=== PATIENT | female | born 1930 | race Caucasian/White ===

== ENCOUNTER 2017-07-07 22:48 | Emergency (ER) | payer OTHER, MEDICARE ==
[2017-07-07 23:34] VITALS: BP 148/104
--- NOTE | 2017-07-07 23:46 | ER Document Report ---
ED Blood Pressure Problem - General Chief Complaint: High Blood Pressure Stated Complaint: BLOOD PRESSURE PROBLEMS Time Seen by Provider: 07/07/17 23:26 Mode of Arrival: Ambulatory Information source: Patient Notes: 86-year-old female presented to ED for elevated blood pressure. She denies any chest pain shortness of breath or any other cardiac symptoms. She states she has had a headache off and on but none today. She is also had some pain in her neck but none today. She states she went to her primary doctor today and he changed her blood pressure medicine. She just became concerned because her blood pressure was in the 190s-200s over 100s. She states it was about that high at the doctor's office. TRAVEL OUTSIDE OF THE [place] IN LAST 30 DAYS: No - HPI Patient complains to provider of: High blood pressure Onset: Other - Has a history of high blood pressure higher than usual Quality of pain: No pain Severity: None Pain Level: Denies Problem is: Chronic problem Pt currently taking medication for problem: Yes Associated symptoms: None Similar symptoms previously: Yes Recently seen / treated by doctor: Yes - Related Data Allergies/Adverse Reactions: codeine Allergy (Verified 07/07/17 23:26) Past Medical History - General Information source: Patient - Social History Smoking Status: Former Smoker Cigarette use (# per day): No Chew tobacco use (# tins/day): No Smoking Education Provided: No Frequency of alcohol use: None Drug Abuse: None Lives with: Family Family History: Reviewed & Not Pertinent Patient has suicidal ideation: No Patient has homicidal ideation: No - Past Medical History Cardiac Medical History: Reports: Hx Coronary Artery Disease, Hx Hypercholesterolemia, Hx Hypertension Pulmonary Medical History: Reports: None EENT Medical History: Reports: None Neurological Medical History: Reports: None Endocrine Medical History: Reports: Hx Hypothyroidism Renal/ Medical History: Reports: None Malignancy Medical History: Reports: None GI Medical History: Reports: None Musculoskeltal Medical History: Reports Hx Arthritis Skin Medical History: Reports None Psychiatric Medical History: Reports: None Traumatic Medical History: Reports: None Infectious Medical History: Reports: None Past Surgical History: Reports: Hx Adenoidectomy, Hx Cardiac Catheterization, Hx Hysterectomy, Hx Orthopedic Surgery, Other - Removal of lymph nodes from chest - Immunizations Immunizations up to date: Yes Review of Systems - Review of Systems Constitutional: No symptoms reported EENT: No symptoms reported Cardiovascular: No symptoms reported Respiratory: No symptoms reported Gastrointestinal: No symptoms reported Genitourinary: No symptoms reported Female Genitourinary: No symptoms reported Musculoskeletal: No symptoms reported Skin: No symptoms reported Hematologic/Lymphatic: No symptoms reported Neurological/Psychological: Anxiety - Due to elevated blood pressure -: Yes All other systems reviewed and negative Physical Exam - Vital signs Vitals: Temp Pulse Resp BP Pulse Ox 97.7 F 72 18 162/108 H 98 07/07/17 22:59 07/07/17 22:59 07/07/17 22:59 07/07/17 22:59 07/07/17 22:59 Interpretation: Normal - General General appearance: Appears well, Alert - HEENT Head: Normocephalic, Atraumatic Eyes: Normal Pupils: PERRL - Respiratory Respiratory status: No respiratory distress. No: Respiratory distress, Tachypnea Chest status: Nontender. No: Tender Breath sounds: Normal Chest palpation: Normal - Cardiovascular Rhythm: Regular Heart sounds: Normal auscultation Murmur: No - Abdominal Inspection: Normal Distension: No distension Bowel sounds: Normal Tenderness: Nontender Organomegaly: No organomegaly - Back Back: Normal, Nontender - Extremities General upper extremity: Normal inspection, Nontender, Normal color, Normal ROM , Normal temperature General lower extremity: Normal inspection, Nontender, Normal color, Normal ROM , Normal temperature, Normal weight bearing. 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 She states it was over 200 at the doctor's office also she is more concerned because she had had blocked arteries and had surgery for this in the past. Patient states she been at her doctor's office today and started on a new medicine. Instructed patient to take her medicine as prescribed and to call primary doctor tomorrow and let him know that she was in the emergency room and what the blood pressure was. - Vital Signs Vital signs: Temp Pulse Resp BP Pulse Ox 98.3 F 66 18 148/104 H 96 07/07/17 23:33 07/07/17 23:33 07/07/17 23:33 07/07/17 23:33 07/07/17 23:33 Discharge - Discharge Clinical Impression: HTN (hypertension) Qualifiers: Hypertension type: unspecified Qualified Code(s): I10 - Essential (primary) hypertension Condition: Stable Disposition: HOME, SELF-CARE Additional Instructions: HIGH BLOOD PRESSURE, NOT TREAT: When your blood pressure was taken today it was elevated. Today's reading was __192/101 . We do not think you need to have your blood pressure treated today. Sometimes, stress or illness causes a temporary elevation of your blood pressure. We suggest that you get your blood pressure measured again during the next few days to see if this elevated blood pressure is more than a temporary abnormality. If your blood pressure is greater than 150/90 on each occasion, you must have treatment. Some simple things you can do to help are: If you have blood pressure medicine but aren't using it regularly, start taking it again. Get some aerobic exercise for at least 20 minutes on a daily basis. (See your doctor before beginning a new exercise program.) Eat a low-fat diet. Lose excess weight. Avoid salty foods and avoid adding salt to any of the foods you eat. Avoid diet pills, decongestants, "energizing" herbs, and other medicines that elevate blood pressure. If left untreated, hypertension greatly enhances your risk for developing heart disease and strokes. Please don't ignore this problem. Your blood pressure is elevated today but you are asymptomatic. That means that you do not have any headaches neck pain chest pain shortness of breath or anything that is concerning for an acute problem today. You have been to your doctor" received prescriptions for blood pressure medicine please take your medicine as has been prescribed and follow-up with your primary doctor. Please check your blood pressure over the next several days and call your doctor and let them know what your blood pressure is running. Please call your doctor in the morning and let him know that she came to the emergency room and watch her blood pressure was today. FOLLOW-UP CARE: If you have been referred to a physician for follow-up care, call the physician s office for an appointment as you were instructed or within the next two days. If you experience worsening or a significant change in your symptoms, notify the physician immediately or return to the Emergency Department at any time for re-evaluation. Referrals: SHERRIE HERNANDEZ MD [Primary Care Provider] - Follow up tomorrow ( )
--- NOTE | 2017-07-08 10:02 | EKG REPORT ---
SEVERITY:- NORMAL ECG - SINUS RHYTHM : Confirmed by: Beatrice Huang 08-Jul-2017 10:01:37
== END 2017-07-07 23:35 | disposition home or self-care (01) ==
LOC: ER 22:48
DX: I10 Essential (primary) hypertension (principal); Z79.899 Other long term (current) drug therapy; F41.9 Anxiety disorder, unspecified; I25.10 Atherosclerotic heart disease of native coronary artery without angina pectoris; Z88.5 Allergy status to narcotic agent; Z87.891 Personal history of nicotine dependence
CPT/HCPCS: 93005; 93010; 99284